=== PATIENT | female | born 1995 | race Caucasian/White ===

== ENCOUNTER 2019-11-24 15:20 | Inpatient (IN) | payer OTHER ==
[2019-11-24] MEDS ORDERED: BUTORPHANOL TARTRATE 1 MG/ML VIAL IVPB ONE (15:34)
--- NOTE | 2019-11-24 15:40 | HP ---
Past Medical History - Primary Care Physician PCP:: Daniela Natarajan - Admission Chief Complaint: Post dates. IUP at 40 + week History of Present Illness: 24 yo G1 EDC 11/18/2019 EGA 40.5 week admitted for induction DENNIS 8 cm BPP 05/14 +afm no bleeding or pain History Source: Patient Limitations to Obtaining History: No Limitations - Past Medical History ...: 1 - Past Surgical History Past Surgical History: Yes: None Hx Myomectomy: No Hx Transabdominal Cerclage: No - Smoking History Have you smoked in the past 12 months: No - Alcohol/Substance Use Hx Alcohol Use: No History of Substance Use: reports: None - Social History Usual Living Arrangement: Yes: With Spouse Home Medications - Allergies Allergies/Adverse Reactions: Allergies Allergy/AdvReac Type Severity Reaction Status Date / Time No Known Allergies Allergy Verified 11/24/19 16:34 - Home Medications Home Medications: Ambulatory Orders Pnv No.95/Ferrous Fum/Folic AC [ Vitamin Tablet] 1 each PO DAILY Review of Systems - Review of Systems Constitutional: reports: No Symptoms Eyes: reports: No Symptoms HENT: reports: No Symptoms Neck: reports: No Symptoms Cardiovascular: reports: No Symptoms Respiratory: reports: No Symptoms Gastrointestinal: reports: No Symptoms Genitourinary: reports: No Symptoms Breasts: reports: No Symptoms Reported Musculoskeletal: reports: No Symptoms Integumentary: reports: No Symptoms Neurological: reports: No Symptoms Endocrine: reports: No Symptoms Hematology/Lymphatic: reports: No Symptoms Psychiatric: reports: No Symptoms Physical Exam - Maternity Constitutional: Yes: Well Nourished, No Distress Neck: Yes: WNL Cardiovascular: Yes: WNL Lungs: Clear to auscultation Breast(s): Yes: WNL - Abdominal Exam/OB Fundal Height: 40 Number of Fetuses: Single Presentation: Vertex Contractions: No Category: I Accelerations: Non-Uniform Decelerations: None - Vaginal Exam/OB Dilatation (cm): FT Effacement (%): 80 Amniotic Membrane Status: Intact Presentation: Vertex/Position Station: -1 Problem List - Problems (1) Post-dates Code(s): O48.0 - POST-TERM Qualifiers: Post-term type: 40-42 weeks gestation Qualified Code(s): O48.0 - Post-term Assessment/Plan IUP at 40+ week admitted for cervidil induction BPP8/8 Plan Cervidil IVF stadol epidural
[2019-11-24] MEDS ORDERED: DINOPROSTONE 10 MG VAGINAL SUPPOSITORY VG ONE (15:41)
[2019-11-24 16:28] VITALS: BMI 24.2
[2019-11-24] MEDS: ELECTROLYTE-148 SOLN 1,000 ML IV SCH (16:50)
--- NOTE | 2019-11-24 17:02 | LDN ---
Oxytocin Pre-Use Checklist Date and Time completed: 11/24/19 1923 Physician order on chart: Yes Current history and physical on chart: Yes Indication for induction is documented: Yes record on chart: Yes Pelvis is documented by physician to be clinically adequate: Yes Estimated weight within past week (clinical or sono): Less than 4500 grams in a non-diabetic woman Gestational age is documented: Yes Consent signed: Yes Status of the cervix is assessed and documented: Yes Presentation is assessed and documented: Yes Assessment completed and includes: A minimum of 30 minutes of monitoring is required prior to start, At least 2 accelerations (15bpm x 15sec) in 30 minutes are present
[2019-11-24] MEDS: OXYTOCIN 30 UNITS in 0.9% NS 30 UNIT/500 ML INFUS.BAG IVPB SCH (17:05)
[2019-11-24 17:22] LABS: BASO % 0.8 % (0-2.0); EOS % 0.4 % (0-4.5); HEMATOCRIT 35.6 % (32.4-45.2); HEMOGLOBIN 12.2 GM/dL (10.7-15.3); LYMPH % 19.1 % (8-40); MCH 29.5 pg (25.7-33.7); MCHC 34.1 g/dl (32.0-36.0); MEAN CELL VOLUME 86.3 fl (80-96); MEAN PLT VOLUME 10.5 fl (7.5-11.1); MONO % 7.3 % (3.8-10.2); NEUT % 72.4 % (42.8-82.8); PLATELET COUNT 183 K/MM3 (134-434); RBC 4.13 M/mm3 (3.60-5.2); RDW 15.6 % (11.6-15.6); WHITE BLOOD COUNT 8.6 K/mm3 (4.0-10.0)
[2019-11-24 17:33] LABS: INR 0.87 (0.83-1.09); PROTHROMBIN TIME (PATIENT) 10.3 SEC (9.7-13.0)
[2019-11-24 17:44] LABS: BLOOD UREA NITROGEN 9.8 mg/dL (7-18); CALCIUM 9.3 mg/dL (8.5-10.1); CREATININE 0.6 mg/dL (0.55-1.3); POTASSIUM 4.3 mmol/L (3.5-5.1)
--- NOTE | 2019-11-24 23:24 | PN ---
Ante-Partal Exam - Subjective Subjective: Pt doing well on 4 mu pitocin Vital Signs: Vital Signs Temperature 98.7 F 11/24/19 22:00 Pulse Rate 108 H 11/24/19 23:00 Respiratory Rate 20 11/24/19 23:00 Blood Pressure 112/75 11/24/19 23:00 O2 Sat by Pulse Oximetry (%) Bleeding: No Headache: No Visual changes: No Right upper quadrant pain: No - Contractions Contractions: Yes Regularity: Regular Intensity: Mild/Mod Monitor Mode: External - Exam during Labor Variability: Moderate Heart Rate Location: [facility] Category: I Monitor Accelerations: Present Monitor Decelerations: None Exam: Vaginal Dilatation (cm): 2-3 Effacement (%): 80 Amniotic Membrane Status: Ruptured Presentation: Vertex - Intrapartum Hemorrhage Risk Risk Score: 0 Risk Level: Low Risk - Assessment/Plan Assessment/Plan: AROM Cat 1 Plan Continue present management
[2019-11-25] MEDS ORDERED: OXYTOCIN 20 UNITS in 0.9% NS 20 UNIT/1,000 ML INFUS.BAG IV ONE (04:43)
[2019-11-25] MEDS ORDERED: LIDOCAINE HCL 1% PRESERVATIVE FREE - 30ML VIAL ONE (04:43)
--- NOTE | 2019-11-25 06:22 | PN ---
Ante-Partal Exam - Subjective Subjective: Pt doing well tolerating contractions Vital Signs: Vital Signs Temperature 98.5 F 11/25/19 06:00 Pulse Rate 96 H 11/25/19 06:00 Respiratory Rate 20 11/25/19 06:00 Blood Pressure 135/85 11/25/19 06:00 O2 Sat by Pulse Oximetry (%) Bleeding: No Headache: No Visual changes: No Right upper quadrant pain: No - Contractions Contractions: Yes Regularity: Regular Intensity: Moderate Monitor Mode: External - Exam during Labor Heart Rate: 135 Variability: Moderate Heart Rate Location: [facility] Category: II Monitor Accelerations: Present Monitor Decelerations: Variable Exam: Vaginal Dilatation (cm): 9 Effacement (%): 100 Amniotic Membrane Status: Ruptured Presentation: Vertex Station: 0 - Assessment/Plan Assessment/Plan: Cat 1 Anticipate vaginal delivery Plan continue present management
[2019-11-25] MEDS ORDERED: WITCH HAZEL 50% (TUCKS) 40 PAD/JAR PAD TP PRN (06:27)
[2019-11-25] MEDS ORDERED: BENZOCAINE 20% 57 GM BOTTLE TP PRN (06:27)
[2019-11-25] MEDS ORDERED: METHYLERGONOVINE MALEATE 0.2 MG/1 ML AMP IM PRN (06:27)
[2019-11-25] MEDS ORDERED: IBUPROFEN 600 MG TABLET (FP) PO PRN (06:27)
[2019-11-25] MEDS ORDERED: ACETAMINOPHEN 325 MG TABLET (FP) PO PRN (06:27)
[2019-11-25] MEDS ORDERED: BENZOCAINE 28 GM HEMORRHOIDAL OINTMENT PR PRN (06:27)
[2019-11-25] MEDS ORDERED: BISACODYL 10 MG SUPP.RECT PR PRN (06:27)
[2019-11-25] MEDS ORDERED: OXYTOCIN 20 UNITS in 0.9% NS 20 UNIT/1,000 ML INFUS.BAG IV SCH (06:45)
--- NOTE | 2019-11-25 10:00 | PN ---
Delivery - Delivery Vaginal Delivery: Vacuum Assist Type of Anesthesia: Local Episiotomy/Laceration: Right Mediolateral (repeaired with 2 0 chromic suture) EBL (cc): 300 Delivery, Single - 1 Minute Total Score: 9 5 Minutes Total Score: 9 - Scalf Feeding Plan Initial Plan: Exclusive throughout hospitalization
--- NOTE | 2019-11-25 10:00 | PROC ---
Obstetrical Vaccum Device - Doc. Following Use of Vaccum Device Indications for use: NRFHR, Maternal Exhaustion, Prolonged Second Stage Risks and Benefits Explained: Yes Consent on Chart: Yes Station: 2 Molding: No Caput: Yes Proper placement of cup confirmed: Yes Number of pulls: 1 Number of pop-offs: 0 Appearance of head on delivery: Caput Behavior Clinician present during vacuum extraction: Yes Behavior Clinician & nursery staff notified of vacuum extraction: Yes
[2019-11-25] MEDS: ELECTROLYTE-148 SOLN 1,000 ML IV SCH (18:51)
[2019-11-25] MEDS: OXYTOCIN 30 UNITS in 0.9% NS 30 UNIT/500 ML INFUS.BAG IVPB SCH (18:51)
[2019-11-25] MEDS ORDERED: SENNOSIDES/DOCUSATE COMBO (SENNA PLUS) TABLET (UD) PO SCH (22:00)
[2019-11-26 08:37] LABS: BASO % 0.2 % (0-2.0); EOS % 0.1 % (0-4.5); HEMATOCRIT 27.1 % (32.4-45.2); HEMOGLOBIN 9.2 GM/dL (10.7-15.3); LYMPH % 13.4 % (8-40); MCH 29.3 pg (25.7-33.7); MCHC 33.8 g/dl (32.0-36.0); MEAN CELL VOLUME 86.6 fl (80-96); MEAN PLT VOLUME 9.4 fl (7.5-11.1); MONO % 5.5 % (3.8-10.2); NEUT % 80.8 % (42.8-82.8); PLATELET COUNT 158 K/MM3 (134-434); RBC 3.13 M/mm3 (3.60-5.2); RDW 15.8 % (11.6-15.6)
--- NOTE | 2019-11-26 14:12 | PN ---
Post Note - Post Date of Delivery: 11/25/19 Post Day: 1 Vital Signs: Vital Signs - 24 hr 11/25/19 11/25/19 11/26/19 18:00 22:00 02:00 Temperature 99.1 F 98.8 F 98.1 F Pulse Rate 120 H 104 H 107 H Respiratory 20 18 18 Rate Blood Pressure 126/84 115/73 125/72 11/26/19 11/26/19 06:00 10:00 Temperature 98.4 F 98.2 F Pulse Rate 101 H 80 Respiratory 18 20 Rate Blood Pressure 123/68 108/63 Labs: Laboratory Results - last 24 hr 11/26/19 08:15 WBC 14.0 H RBC 3.13 L Hgb 9.2 L Hct 27.1 L D MCV 86.6 MCH 29.3 MCHC 33.8 RDW 15.8 H Plt Count 158 MPV 9.4 D Absolute Neuts (auto) 11.3 H Neutrophils % 80.8 Lymphocytes % 13.4 D Monocytes % 5.5 Eosinophils % 0.1 Basophils % 0.2 Nucleated RBC % 0 - Subjective Subjective: No Complaints, No Nausea or vomiting - Objective Afebrile: No Breast: Not engorged Abdomen: Soft, Non-tender Uterus: Fundus firm Vagina: Scant lochia Extremities: Non-tender - Assessment/Plan (1) Post-dates Assessment: S/P Normal Plan: Routine Care (2) Anemia during puerperium Plan: Other (fes04 bid)
--- NOTE | 2019-11-27 06:16 | DS ---
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 Vital Signs: Vital Signs Temperature 97.8 F 11/26/19 22:00 Pulse Rate 88 11/26/19 22:00 Respiratory Rate 20 11/26/19 22:00 Blood Pressure 127/87 11/26/19 22:00 O2 Sat by Pulse Oximetry (%) 100 11/25/19 10:35 Constitutional: Yes: Well Nourished, No Distress Neck: Yes: WNL Gastrointestinal: Yes: WNL, Soft ....Post : Yes: Uterus firm, Uterus non-tender Extremities: Yes: WNL Edema: No Neurological: Yes: WNL, Alert, Oriented Labs: CBC, BMP 11/26/19 08:15 11/24/19 16:20 Delivery - Delivery Vaginal Delivery: No Problems, Vacuum Assist Type of Anesthesia: Local Episiotomy/Laceration: Right Mediolateral (repeaired with 2 0 chromic suture) EBL (cc): 300 Delivery, Single - Stages of Labor Date 1st Stage Initiatied: 11/24/19 Time 1st Stage Initiated: 22:00 Date 2nd Stage Initiated: 11/25/19 Time 2nd Stage Initiated: 07:25 Date of Delivery: 11/25/19 Time of Delivery: 09:26 Time Placenta Delivered: 09:33 Placenta: Yes: Spontaneous - Condition of Hammer Smith/Chief Ultrasound Technologist Present: Yes Name: Yara Roth Gender: Male Weight: 8 lb 7 oz Position: OA Total Hours ROM (Hrs/Mins): 12h23 m - 1 Minute Total Score: 9 5 Minutes Total Score: 9 - Feeding Plan Initial Plan: Exclusive throughout hospitalization Discharge Summary Problems reviewed: Yes Reason For Visit: INDUCTION OF LABOR Current Active Problems Post-dates (Acute) Procedures: Principal: Normal vaginal/vacuum delivery Hospital Course: unremarkable Condition: Good - Instructions Disposition: HOME - Home Medications Comprehensive Discharge Medication List: Ambulatory Orders Pnv No.95/Ferrous Fum/Folic AC [ Vitamin Tablet] 1 each PO DAILY
[2019-11-27 10:10] VITALS: BP 134/79; PULSE 119; TEMP 98.5
== END 2019-11-27 12:45 | disposition home or self-care (01) | DRG 807 ==
LOC: JLDR 15:20 → J3W 11-25 11:13
PROVIDERS: ADMIT Obstetrics & Gynecology; ATTEND Obstetrics & Gynecology
PROC: 10D07Z6 Extraction of Products of Conception, Vacuum, Via Natural or Artificial Opening (ICD-10-PCS; principal; 2019-11-25)
PROC: 0W8NXZZ Division of Female Perineum, External Approach (ICD-10-PCS; 2019-11-25)
DX: O48.0 Post-term pregnancy (principal); Z37.0 Single live birth; O76 Abnormality in fetal heart rate and rhythm complicating labor and delivery; O63.1 Prolonged second stage (of labor); O75.81 Maternal exhaustion complicating labor and delivery; Z3A.40 40 weeks gestation of pregnancy; O66.5 Attempted application of vacuum extractor and forceps; O99.02 Anemia complicating childbirth
CPT/HCPCS: 36415; 36600; 59409; 80048; 82803; 85025; 85610; 85730; 86593; 86850; 86900; 86901